=== PATIENT | female | born 1995 | race Caucasian/White ===

== ENCOUNTER 2023-11-03 00:03 | Inpatient (IN) ==
[2023-11-03 01:04] LABS: Basophils # (auto) 0.06 K/uL (0.00-0.20); Basophils % (auto) 0.5 %; Eosinophils # (auto) 0.04 K/uL (0.00-0.50); Eosinophils % (auto) 0.4 %; Hematocrit (blood only) 41.6 % (37.0-47.0); Hemoglobin 13.9 g/dl (12.0-16.0); Immature Granulocytes # (auto) 0.05 K/uL (0.01-0.20); Immature Granulocytes % (auto) 0.4 %; Lymphocytes # (auto) 3.99 K/uL (1.20-3.40); Lymphocytes % (auto) 35.4 %; Mean Corpuscular Hemoglobin 28.4 pg (25.0-34.0); Mean Corpuscular Hgb Conc 33.4 g/dL (32.0-36.0); Mean Corpuscular Volume 85.1 fL (80.0-100.0); Mean Platelet Volume 12.5 fL (9.4-12.4); Monocytes # (auto) 0.85 K/uL (0.11-0.59); Monocytes % (auto) 7.5 %; Neutrophils # (auto) 6.27 K/uL (1.40-6.50); Neutrophils % (auto) 55.8 %; Platelet Count 278 K/uL (130-400); RDW Coefficient of Variation 13.1 % (11.5-14.5); RDW Standard Deviation 39.8 fL (36.4-46.3); Red Blood Count 4.89 M/uL (4.20-5.40); White Blood Count 11.26 K/ul (4.8-10.8)
[2023-11-03 01:20] LABS: Albumin Globulin Ratio 1.7 (0.9-2); Albumin Level 4.9 gm/dl (3.4-5.0); BUN Creatinine Ratio 13.4 (10-20); Bilirubin,Total 0.9 mg/dl (0.2-1.0); Calcium 9.7 mg/dl (8.6-10.3); Creatinine Clr Calc Pharmacy 134.9 ml/min; Est GFR (African American) 140.6 ml/min; Est GFR (Non-African American) 121.3 ml/min; Globulin 2.9 gm/dl (2.5-4.0); Potassium 3.5 mmol/L (3.5-5.1); Total Protein 7.8 gm/dl (6.0-8.3)
[2023-11-03 01:31] LABS: Acetaminophen < 3 ug/ml (10-30); Salicylate < 3.0 mg/dl (3.0-30)
[2023-11-03 01:35] LABS: Thyroid Stimulating Hormone 2.872 uIu/ml (0.300-4.500)
[2023-11-03 03:01] LABS: Appearance Urine Clear (Clear); Bilirubin Urine Negative (Negative); Blood Urine Negative (Negative); Color Urine Yellow; Glucose Urine UA Negative (Negative); Ketones Urine 1+ (Negative); Leukocyte Esterase Urine Negative (Negative); Nitrite Urine Negative (Negative); Protein Urine Negative (Negative); Urobilinogen Urine Negative (Negative)
--- OUTSIDE RECORDS SUMMARY | 2023-11-03 03:08 | External Medical Summary | Continuity of Care Document ---
Author Name Unknown Organization [facility] [address] [id number] Address [address] [place] [address] [phone] Encounter [facility] [id number] Date(s): 06/25/23 - 06/25/23 [facility] [address] [facility] [address] [facility] [address] [place] [id number] Encounter Diagnosis Arthritis of first metatarsophalangeal (MTP) joint of right foot(Discharge Diagnosis) - 06/25/23 Sesamoiditis(Discharge Diagnosis) - 06/25/23 Right foot pain(Discharge Diagnosis) - 06/25/23 Discharge Disposition: Home or Self Care Attending Physician: ROSARIO Burns Christina L Allergies, Adverse Reactions, Alerts No Known Medication Allergies Assessment and Plan Extracted from: Title:Follow Up Visit Author:ROSARIO Burns, Gigi Zelaya Date:06/25/23 1.Arthritis of first metatarsophalangeal (MTP) joint of right foot Discussed with patient at this time that I am extremely pleased with her results I feel she should continue the padding as needed as well as the orthotics she may follow-up with me on an as-needed basis. 15-minute follow-up visit, 5-minute chart review, 10 minutes [id number] 2.Sesamoiditis 3.Right foot pain Medications No Known Medications Mental Status 06/25/23 Barriers to Learning one year None evide nt Mandatory Health Literacy Documentation Yes Health Literacy Communication Barriers N ever Primary Language French Problem List Condition Confirmation Course Effective Dates Status Health Status Informant Arthritis of first metatarsophalangeal (MTP) joint of right foot Confirmed Active Right foot pain Confirmed Active Stress reaction of foot Confirmed Active Sesamoiditis Confirmed Active Diagnosis Diagnosis Type Effective Dates Health Status Clinical Service Informant Arthritis of first metatarsophalangeal (MTP) joint of right foot Discharge Diagnosis 06/25/23 Right foot pain Discharge Diagnosis 06/25/23 Sesamoiditis Discharge Diagnosis 06/25/23 Procedures Procedure Date Related Diagnosis Body Site Status None Completed Social History Social History Type Response Smoking Status Never smoked cigaret tulio Sex Female Ortho Outpt Note * ROSARIO Burns Christina L: PERFORM Event Display: Ortho Outpt Note Authored Date: [id number] Chief Complaint follow-up right foot Subjective Patient is a very pleasant 28-year-old female presenting today for follow-up evaluation of right foot sesamoiditis last seen March 24, 2023. I felt that perhaps her inflammation to the sesamoid bones was secondary to her gaitI had recommended PToverall she states she was feeling better and nothaving a constant pain in the sesamoid areashe noted her pain had not completely resolved but wasbethany norwood had not yet found a pad that had workedbut was open to suggestions -Patient has had complete resolution of her pain or discomfort overall she is feeling well at today's visit she has returned to all of her activities of daily living without further tenderness or pain she feels that she has been able to walk all over campus without discomfort she is overall very pleased with her results. Review of Systems No pertinent positives. Objective Physical Exam Problem focused right foot: Dorsalis pedis and posterior tibial pulses fully palpable 2 out of 4capillary refill time less than 3 seconds skin turgor is good to all digitsof the right foot with pedal hair noted to be present. Neurovascular status is intact all digits of the right foot. Right foot without swelling tenderness or erythema I am not able to reproduce any pain to palpationpatient feels that the gel pads are suggested at previous visit were significantly improving her discomfort she was able to wear them with a lot more of her shoes including sandals in the summer shecontinues to wear her orthotics with her sneakers. Wearing custom orthotics with offloading and supportive shoe gear. X-ray dictation 3 views right foot:Taken at November 06, 2022 visit. Assessment/Plan 1.Arthritis of first metatarsophalangeal (MTP) joint of right foot Discussed with patient at this time that I am extremely pleased with her results I feel she should continue the padding as needed as well as the orthotics she may follow-up with me on an as-needed basis. 15-minute follow-up visit, 5-minute chart review, 10 minutes [id number] 2.Sesamoiditis 3.Right foot pain Electronic Signature on File Electronically Reviewed/Signed by: Reema Burns DPM Author Signature Dt/Tm:06/25/2023 03:17 PM Division of Sports Medicine CLR Patient Care team information Care Team Personnel Name: ROSARIO Burns, Reema Zelaya Position: Physician - Podiatry Member Role: Lifetime Relationship Address: Address: [address] [facility] [address] [place] [id number] [place]
[2023-11-03 03:30] LABS: Amphetamines+Metham, Urine Neg (Neg); Barbiturates, Urine Neg (Neg); Benzodiazepine, Urine Neg (Neg); Cocaine, Urine Neg (Neg); MDMA (Ecstacy), Urine Neg (Neg); Marijuana, Urine Pos (Neg); Methadone, Urine Neg (Neg); Opiate, Urine Neg (Neg); Phencyclidine, Urine Neg (Neg)
--- NOTE | 2023-11-03 04:35 | Emergency Department Note ---
Impression & Plan Psychosis Admit to 3 S. ED Provider Note NAME: CAITY CAICEDO AGE: 28 SEX: Female INFORMANT: Patient ED PROVIDER(S): Nia Greco DO CHIEF COMPLAINT: Hearing voices PLAN: Disposition: Admit to 3 S. 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 who presents to the emergency department with the [employer] [facility] [employer] after having episodes of hearing voices today and seeming acutely psychotic. The patient admits that she has had very little sleep over the past couple of days. The patient had laboratory studies performed which showed a mild leukocytosis at 11.2. She was not anemic. H&H were stable. Glucose was normal. Renal function was normal. Urine tox screen was positive for marijuana. Alcohol level was undetectable. Tylenol and aspirin levels were negative. Patient denies being homicidal or suicidal. Initially, the patient was unwilling to sign herself in voluntarily stating that she wanted to go home but then realizing she has not been eating or drinking like she should and admitted that she felt scared about the thoughts that she was having and was willing to admit herself voluntarily for inpatient psychiatric care. Care/management discussed with: ED psychiatric onsite case manager Triage Nursing notes: Reviewed and agree with them. Vital Signs: reviewed and unremarkable Differential Diagnosis: Psychosis, mood disorder, thought disorder, drug abuse HPI: 28 year old Female arrives for evaluation of hallucinations. The patient explains that this morning upon awakening, she was hearing her friend's voice tell her to do things that she would not normally do. She described telepathic communications believes that she was God. She "wrecked her apartment." She describes that she is normally neat and organized and she made things very disorganized in her apartment. She then continued to hear voices and went to her friend's office where she proceeded to take off all of her clothes and sit on her couch. This was very unusual behavior for her. This was not well- received by her friend. 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, history of marijuana use but has not used in the past 10 days HOME MEDICATIONS: None ALLERGIES: None VITALS: See Below PHYSICAL EXAMINATION: HEENT: Head - normocephalic and atraumatic Pupils are equal, round, and reactive to light. Extraocular eye muscles are intact, and sclera are anicteric. Nose - moist nasal mucosa without discharge. Mouth - moist buccal mucosa. Oropharynx is nonerythematous and there is no tonsillar exudate or edema noted. Neck: Supple; no JVD, nuchal rigidity, cervical lymphadenopathy, or auscultated bruits. Heart: Regular rate and rhythm. There is a normal S1 and S2 with no murmurs, clicks, or gallops appreciated. Lungs: Clear to auscultation bilaterally with no wheezes, rales, or rhonchi. Abdomen: Soft, completely nontender, nondistended, with good bowel sounds. There are no palpable pulsatile masses or hepatosplenomegaly. There is no guarding, rigidity, or rebound noted. Extremities: No evidence of cyanosis, clubbing, or edema. There are easily palpable peripheral pulses. Skin: warm and dry with good turgor and no rashes. Psych: Patient has a normal affect and answers all questions appropriately. She seems to have good insight but admits that she has been hearing voices which are not commanding her to do things she would not normally do. She describes very little sleep over the past 7 to 10 days. She describes eating very little food. She denies any drug use in the past 10 days. Emergency department course: The patient was evaluated in room A-7. A complete history and physical was performed. Laboratory studies were drawn as above. Patient was felt to be medically cleared. She was evaluated by the art manager. Initially, she did not want to be admitted to the hospital believing that she could handle her intrusive thoughts as an outpatient. She was scheduled to go to [facility] at 2 PM today. I went to reevaluate her prior to discharge and the patient became very tearful and told me that she was afraid. She was willing to sign herself in voluntarily for further inpatient care. She was evaluated by staff from 3 S. and they will admit her to their unit. Past Med/Surg History Medical History (Updated 11/03/23 @ 03:44 by Nia Greco DO) Food sensitivity with gastrointestinal symptoms No pertinent past medical history Surgical History No pertinent past surgical history Family History Other Diabetes Lung cancer Social History Smoking Status: Current some day smoker Tobacco Type: E-cigarettes / Vaping Hx Alcohol Use: Yes Alcohol Intake Frequency: 2-4 x/Month Hx Substance Use: No Preferred Language: East Timorese Feels Safe at Home: Yes Sunscreen Use: Yes Gender Identity: Female Allergies Allergies Allergy/AdvReac Type Severity Reaction Status Date / Time No Known Allergies Allergy Verified 09/22/22 09:33 Home Meds Home Medications Medication Instructions Recorded Confirmed bupropion HCl 300 mg 24 hr tablet, 300 mg PO QAM 05/16/23 05/16/23 extended release Results & Data (ED) Vital Signs Vital Signs - 24 hr 11/03/23 00:16 Temperature 36.7 C Temperature Source Oral Pulse Rate 80 Pulse Rhythm Regular Pulse Strength Normal Respiratory Rate 16 Respiratory Effort / Characteristics Non-Labored Spontaneous Respiratory Depth Normal Respiratory Pattern Regular Blood Pressure 137/73 Blood Pressure Mean 94 Blood Pressure Position Sitting Pulse Oximetry 97 Oxygen Delivery Method Room Air Sepsis Recent Fever Within 48 Hours No Sepsis New/Unexplained Change in Mental Status N/A Sepsis Action Taken by Nursing No Action Required Laboratory Data 11/03/23 00:15 11/03/23 00:15 Lab Results 11/03/23 11/03/23 11/03/23 Range/Units 00:15 02:28 02:30 WBC 11.26 H (4.8-10.8) K/ul RBC 4.89 (4.20-5.40) M/uL Hgb 13.9 (12.0-16.0) g/dl Hct 41.6 (37.0-47.0) % MCV 85.1 (80.0-100.0) fL MCH 28.4 (25.0-34.0) pg MCHC 33.4 (32.0-36.0) g/dL RDW Std Deviation 39.8 (36.4-46.3) fL RDW Coeff of Jacques 13.1 (11.5-14.5) % Plt Count 278 (130-400) K/uL MPV 12.5 H (9.4-12.4) fL Immature Gran % (Auto) 0.4 % Neut % (Auto) 55.8 % Lymph % (Auto) 35.4 % [place] % (Auto) 7.5 % Eos % (Auto) 0.4 % Baso % (Auto) 0.5 % Neut # (Auto) 6.27 (1.40-6.50) K/uL Lymph # (Auto) 3.99 H (1.20-3.40) K/uL [place] # (Auto) 0.85 H (0.11-0.59) K/uL Eos # (Auto) 0.04 (0.00-0.50) K/uL Baso # (Auto) 0.06 (0.00-0.20) K/uL Immature Gran # (Auto) 0.05 (0.01-0.20) K/uL Sodium 137 (136-145) mmol/L Potassium 3.5 (3.5-5.1) mmol/L Chloride 102 (98-107) mmol/L Carbon Dioxide 24 (21-32) mmol/L Anion Gap 11 (3-11) BUN 9 (6-23) mg/dl Creatinine 0.67 (0.6-1.2) mg/dl Est Cr Clr Drug Dosing 134.9 ml/min Est GFR ( Amer) 140.6 ml/min Est GFR (Non-Af Amer) 121.3 ml/min BUN/Creatinine Ratio 13.4 (10-20) Glucose 103 H (70-99(Fasting)) mg/dl Calcium 9.7 (8.6-10.3) mg/dl Total Bilirubin 0.9 (0.2-1.0) mg/dl AST 23 (13-39) U/L ALT 15 (7-52) U/L Alkaline Phosphatase 68 (34-104) U/L Total Protein 7.8 (6.0-8.3) gm/dl Albumin 4.9 (3.4-5.0) gm/dl Globulin 2.9 (2.5-4.0) gm/dl Albumin/Globulin Ratio 1.7 (0.9-2) TSH 2.872 (0.300-4.500) uIu/ml Urine Color Yellow Urine Appearance Clear (Clear) Urine pH 6.0 (4.5-7.5) Ur Specific [place] 1.010 (1.000-1.030) Urine Protein Negative (Negative) Urine Glucose (UA) Negative (Negative) Urine Ketones 1+ H (Negative) Urine Blood Negative (Negative) Urine Nitrite Negative (Negative) Urine Bilirubin Negative (Negative) Urine Urobilinogen Negative (Negative) Ur Leukocyte Esterase Negative (Negative) POC Ur Test NEG (NEG) Salicylates < 3.0 L (3.0-30) mg/dl Urine Opiates Screen Neg (Neg) Ur Methadone, Qual Neg (Neg) Acetaminophen < 3 L (10-30) ug/ml Urine Barbiturates Neg (Neg) Ur Phencyclidine (PCP) Neg (Neg) U Amphetamin/Meth Scrn Neg (Neg) MDMA (Ecstasy) Screen Neg (Neg) U Benzodiazepines Scrn Neg (Neg) Ur Cocaine Metabolite Neg (Neg) U Marijuana (THC) Screen Pos H (Neg) Ethyl Alcohol mg/dL < 10.0 (<10.0) mg/dl SARS-CoV-2, RNA, NAAT (NEGATIVE) 11/03/23 Range/Units 04:40 WBC (4.8-10.8) K/ul RBC (4.20-5.40) M/uL Hgb (12.0-16.0) g/dl Hct (37.0-47.0) % MCV (80.0-100.0) fL MCH (25.0-34.0) pg MCHC (32.0-36.0) g/dL RDW Std Deviation (36.4-46.3) fL RDW Coeff of Jacques (11.5-14.5) % Plt Count (130-400) K/uL MPV (9.4-12.4) fL Immature Gran % (Auto) % Neut % (Auto) % Lymph % (Auto) % [place] % (Auto) % Eos % (Auto) % Baso % (Auto) % Neut # (Auto) (1.40-6.50) K/uL Lymph # (Auto) (1.20-3.40) K/uL [place] # (Auto) (0.11-0.59) K/uL Eos # (Auto) (0.00-0.50) K/uL Baso # (Auto) (0.00-0.20) K/uL Immature Gran # (Auto) (0.01-0.20) K/uL Sodium (136-145) mmol/L Potassium (3.5-5.1) mmol/L Chloride (98-107) mmol/L Carbon Dioxide (21-32) mmol/L Anion Gap (3-11) BUN (6-23) mg/dl Creatinine (0.6-1.2) mg/dl Est Cr Clr Drug Dosing ml/min Est GFR ( Amer) ml/min Est GFR (Non-Af Amer) ml/min BUN/Creatinine Ratio (10-20) Glucose (70-99(Fasting)) mg/dl Calcium (8.6-10.3) mg/dl Total Bilirubin (0.2-1.0) mg/dl AST (13-39) U/L ALT (7-52) U/L Alkaline Phosphatase (34-104) U/L Total Protein (6.0-8.3) gm/dl Albumin (3.4-5.0) gm/dl Globulin (2.5-4.0) gm/dl Albumin/Globulin Ratio (0.9-2) TSH (0.300-4.500) uIu/ml Urine Color Urine Appearance (Clear) Urine pH (4.5-7.5) Ur Specific [place] (1.000-1.030) Urine Protein (Negative) Urine Glucose (UA) (Negative) Urine Ketones (Negative) Urine Blood (Negative) Urine Nitrite (Negative) Urine Bilirubin (Negative) Urine Urobilinogen (Negative) Ur Leukocyte Esterase (Negative) POC Ur Test (NEG) Salicylates (3.0-30) mg/dl Urine Opiates Screen (Neg) Ur Methadone, Qual (Neg) Acetaminophen (10-30) ug/ml Urine Barbiturates (Neg) Ur Phencyclidine (PCP) (Neg) U Amphetamin/Meth Scrn (Neg) MDMA (Ecstasy) Screen (Neg) U Benzodiazepines Scrn (Neg) Ur Cocaine Metabolite (Neg) U Marijuana (THC) Screen (Neg) Ethyl Alcohol mg/dL (<10.0) mg/dl SARS-CoV-2, RNA, NAAT NEGATIVE (NEGATIVE) Discharge Plan Visit Data Chief Complaint: Mental Health Evaluation Stated Complaint: 201 ED Provider: Nia Greco Discharge Problem: Psychosis Patient Disposition: Admitted As Inpatient Discharge Instructions Krames/Other Patient Handouts: ED Psychosis Activity Restrictions/Additional Instructions: Call [phone] if you have further hallucinations Return to the emergency department for help as needed Follow-up today at 2:00 with [facility] Interventions: ED Discharge Assessment Last Done: 11/03/23 06:32 Forms Stand Alone Forms: My [facility], Suicide Prevention Resources Prescriptions Prescriptions: No Action bupropion HCl 300 mg tablet extended release 24 hr 300 mg PO QAM Referrals [facility] [Primary [facility] - Discharge Problem: Psychosis Qualifiers: Psychosis type: unspecified psychosis type Qualified Code(s): F29 - Unspecified psychosis not due to a substance or known physiological condition
[2023-11-03] MEDS ORDERED: BISMUTH SUBSALICYLATE LIQD 236 ML PO PRN ×2 (06:48→07:53)
[2023-11-03] MEDS ORDERED: MAGNESIUM HYDROXIDE SUSP 30 ML UDC PO PRN ×2 (06:48→07:53)
[2023-11-03] MEDS ORDERED: hydrOXYzine HCl 25 MG TAB PO PRN ×3 (06:48→07:53)
[2023-11-03] MEDS ORDERED: ALUMINUM/MAGNESIUM SUSP 30 ML UDC PO PRN ×2 (06:48→07:53)
[2023-11-03] MEDS ORDERED: ACETAMINOPHEN 325 MG TAB PO PRN ×2 (06:48→07:53)
[2023-11-03] MEDS ORDERED: SODIUM CHLORIDE 0.65% NA SOLN 45 ML (OCEAN) PRN ×2 (06:48→07:53)
--- NOTE | 2023-11-03 11:31 | History & Physical ---
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 Pt attributes this to sleep deprivation and excessive use of cannabis. Based on her report of similar previous episodes that resolved with sleep and briefly abstaining from cannabis, this seems plausible. She has a history of adolescent admissions for "depression" and denies manic symptoms outside the context of heavy cannabis use. However, the presentation could also be consistent with bipolar I disorder manic with psychotic features. Risks and benefits of, and alternatives to, the use of quetiapine (Seroquel) for mood and psychosis were reviewed. This discussion included but was not limited to issues known potentially to be associated with use of such medication, especially at high doses or with longer use, including sedation, weight gain, problems with glucose metabolism including Type II diabetes, problems with lipid metabolism, cardiac conduction problems, or rarely involuntary movements, parkinsonian symptoms, or even acute dystonia or life- threatening Neuroleptic Malignant Syndrome. Discussed the need for periodic monitoring of fasting glucose or Hemoglobin A1c and fasting lipid panel, which were ordered for baseline monitoring. The patient agreed to start a trial of quetiapine. Overall I spent a total of 77 minutes on the floor for this admission including review of chart records, review of test results, direct evaluation of the patient [id number], counseling the patient, reconciling and ordering medication, medication education with the patient, risk assessment, discussion during interdisciplinary treatment rounds and with the psychiatric liaison nurse, and documentation in the electronic health record. (1) Cannabis-induced psychotic disorder: Plan The patient was admitted to the [facility] ([facility]) on q15 minute checks (behavioral with suicide precautions) for safety.The patient will participate in group, recreational, and milieu therapies and will be offered additional individual and family sessions as clinically appropriate. * start quetiapine 25 mg QAM (with first dose now) and 50 mg QHS * HgbA1c and fasting lipids * in addition to the screening labs ordered in the ED, will order vitamin B12 level, folic acid level, 25-OH vitamin D level, ESR to rule out conditions related to psychiatric symptoms. Inventory Assets Strengths: supportive relationships, voluntary, intelligent, employed, attending classes Needs: safety and stabilization, medication adjustment, additional coping skills, increased outpatient services Suicide Risk Level Suicide Risk Level: Low (q15 min observation checks) (denies suicidal thoughts) Risk Factors Assessment Male: No : Yes Do You Have Access To A Gun?: No Health Problems: No Mental Health Diagnoses: No Substance Use Disorders: Yes Previous Attempt: No Previous Psychiatric Hospitalization: Yes Hopelessness: No Protective Factors Assessment : No Responsible for Young Children: No Employed: Yes Supportive Family: Yes Good Rapport with Provider: Yes Psychiatric History Identifying Data CAITY CAICEDO is a 28-year-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 Chief Complaint "I think I've been enthralled to a vampire by hypnosis". History of Present Illness As part of a thorough review of the available medical records, I have read and incorporated into my assessment the following notes by the ED physician: "28 year old Female arrives for evaluation of hallucinations. The patient explains that this morning upon awakening, she was hearing her friend's voice tell her to do things that she would not normally do. She described telepathic communications believes that she was God. She "wrecked her ap artment." She describes that she is normally neat and organized and she made things very disorganized in her apartment. She then continued to hear voices and went to her friend's office where she proceeded to take off all of her clothes and sit on her couch. This was very unusual behavior for her. 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 The patient admits that she has had very little sleep over the past couple of days. The patient had laboratory studies performed which showed a mild leukocytosis at 11.2. She was not anemic. H&H were stable. Glucose was normal. Renal function was normal. Urine tox screen was positive for marijuana. Alcohol level was undetectable. Tylenol and aspirin levels were negative. Patient denies being homicidal or suicidal. Initially, the patient was unwilling to sign herself in voluntarily stating that she wanted to go home but then realizing she has not been eating or drinking like she should and admitted that she felt scared about the thoughts that she was having and was willing to admit herself voluntarily for inpatient psychiatric care." and the following notes by the ED psychiatric ed case manager: "Met with pt to complete MH and suicide risk assessments. Pt is unsure who called the police tonight. She reports that she was on the phone with her father when the officer knocked on her door. Pt denies SI/HI. She relates that today when she woke up she wrecked her apartment. When asked for more detail, pt states that she turned around her knickknacks and photos so that they werent facing her. She also reports that she feels she was communicating telepathically with a friend today who instructed her to take her clothes off in an office and open the door. Pt relates that these behaviors are well outside her norms. Pt also reports that sometimes she feels like God. Pt also states that she is having trouble remembering everything that happened today. Pt indicated that she felt like her internal dialogue was split in three. She is also reporting difficulty sleeping, stating I cant sleep. Its like there is a storm in my brain. Pt states that she does not believe that she is experiencing psychosis, but rather that the problem is the way the world is interacting with her. Pt does not currently have any outpatient providers and is not taking any medications. She states that she has been inpatient two times in the past, both in her mid-teens for depression and anxiety. 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 She states that today she was discussing the possibility of withdrawing from the program with her advisor at an 11:00 appointment. She reports asking her advisor something personal but has not indicated what that may be. Pt is adamantly denying the need for inpatient treatment" "While Dr. Greco met w/pt to discuss discharging her, she stated she would now like to sign herself in. CM met with pt at bedside who is reporting after speaking with her dad, she realizes she needs help and would like to sign in." Review of the medical record reveals an ED visit May 2023 with similar symptoms from which she was discharged to home. Review of pertinent labs reveals they are noncontributory except for mild leukocytosis. A urine toxicology screen was positive for metabolites of cannabis. BAL was <10 mg/dL. screen was negative. On exam pt is initially very guarded and wary, appearing anxious and restless. She is alert and fully-oriented. Eye contact is poor. Speech is of reduced latency, increased rate and duration, and normal volume. She appears to have racing thoughts. Pt dates onset of problems to over a year ago when problems arose in her 6-year relationship with a senior financial reporting accountant whom she'd met when they were both in college in [place]. She felt as if her girlfriend were inserting thoughts and feelings into her mind even though she was shipped out and that she was somehow rifling through items in pt's apartment and in her safe. She ended that relationship and has subsequently been on a quest to find someone honest with whom she can have good sex. For the past several weeks she says she's hardly slept at all. She feels as if she has been hypnotized by a vampire to whom she is now in [place] or that her actions and thoughts are being controlled from a distance by a woman. (I wasn't able to tell if this is the same as her former girlfriend, but my sense is that it's someone else). She has "been instructed" to leave her Ph.D. program "and do something else". She has sometimes felt as if she were God, but finds that thought unpleasant. She identifies a particular woman in her department as "acting as if she wants to control the whole department". At a recent meeting that included her "everyone else looked zoned out" and that woman (who was running the meeting) did not, so she assumes that some sort of mind control was being exerted. Pt voices that she knows this sounds crazy and sometimes refers to her "delusions" but is not fully in agreement that her odd experiences are psychotic. For example, when I told her that hearing a voice in her head telling her to take her clothes off sounds to me like a command auditory hallucination, pt says she knows it sounds like that but she disagrees. Says she's "been smoking a lot of pot lately" but isn't able to quantify her use. She thinks she's had previous episodes of psychosis related to heavy cannabis use and thinks she should stop but hasn't been able to. She was admitted twice in her adolescence for depression but has not been in treatment for a long time. Past Psychiatric History Current Psychiatric Diagnosis: MDD, JING Outpatient Services: none Previous Psych Admissions: 2 during adolescence for depression and anxiety Do You Have Access To A Gun?: No History of Previous Suicide Attempt: Yes (Age [age]) Allergies Allergy/AdvReac Type Severity Reaction Status Date / Time No Known Allergies Allergy Verified 09/22/22 09:33 Family History Family History of: Other-List under Comment Family Mental Health History Comment: unable to assess at this time Alcohol History Hx of Alcohol Use Over the Past 12 Months: No AUDIT Total Score: 1 Smoking Use Have You Smoked or Used Tobacco Products in the Last 30 Days: Yes tobacco type: cigarettes Smoking Status: Current some day smoker Smoking packs per day: 0.25 Substance History Hx of Prescription Med Misuse Over the Past 12 Months: No Hx of Over the Counter Med Misuse Over the Past 12 Months: No Hx of Inhalent Misuse Over the Past 12 Months: No Hx of Organic Substance Use Over the Past 12 Months: Yes (marijuana use) Hx of Illegal Substances/Street Drug Use Over Past 12 Months: No Problems as a Result of Past Substance Use: None Identified Personal History Living Arrangements: Apartment Highest Grade Completed: College Beliefs That Will Affect Care: None Patient History Medical History (Updated 11/03/23 @ 14:47 by Chalino Arroyo MD) Cannabis-induced psychotic disorder Food sensitivity with gastrointestinal symptoms No pertinent past medical history Surgical History No pertinent past surgical history Family History Other Diabetes Lung cancer Social History Smoking Status: Current some day smoker Tobacco Type: E-cigarettes / Vaping Hx Alcohol Use: Yes Alcohol Intake Frequency: 2-4 x/Month Hx Substance Use: No Preferred Language: Citizen Of [place] Communication Ability: Effective Interim Controller Required: No Beliefs That Will Affect Care: None Feels Safe at Home: Yes Sunscreen Use: Yes Gender Identity: Female Assistive Devices: None Review of Systems Psychiatric: + behavioral changes, + abnormal sleep p attern, + anxiety, + difficulty concentrating, + paranoia, + auditory hallucinations and + substance abuse Physical Exam Psychiatric: Orientation: alert, oriented to person, oriented to place, oriented to time and + guarded Apperance: appropriately dressed and appropriately groomed Eye Contact: + poor eye contact Motor Behavior: + psychomotor agitation (restless, fidgety) Speech: + pressured speech (reduced latency, rapid, prolonged, but normal volume); no loud speech Affect: + labile affect Mood: + anxious mood Thought Process: + flight of ideas and + looseness of associations Thought Content: + paranoid, + delusions, + ideas of reference, + thought insertion and + persecution Suicidal Thoughts: denies suicidal thoughts, denies suicidal plan and denies suicidal intent Homicidal Thoughts: denies homicidal thoughts Hallucinations: + auditory hallucinations; no visual hallucinations Cognition: recent memory grossly intact, remote memory grossly intact and language grossly intact; + attention no t intact Estimated Intelligence: consistent with education level Insight: + limited insight Judgment: + fair judgement Vital Signs (Past 24 Hours): Last Vital Signs Temp 36.7 C 11/03/23 08:04 Pulse 85 11/03/23 08:04 Resp 16 11/03/23 08:04 BP 113/73 11/03/23 08:04 Pulse Ox 98 11/03/23 08:04 O2 Del Method Room Air 11/03/23 08:04 Exam Statement: A physical exam was performed in the ED for the purposes of medical clearance. I accept that physical as correct and adequate for the purposes of the inpatient physical exam and have incorporated that information into my assessment. Results & Data ([facility]) Laboratory Results Laboratory Results - last 24 hr 11/03/23 11/03/23 11/03/23 00:15 02:28 02:30 WBC 11.26 H RBC 4.89 Hgb 13.9 Hct 41.6 MCV 85.1 MCH 28.4 MCHC 33.4 RDW Std Deviation 39.8 RDW Coeff of Jacques 13.1 Plt Count 278 MPV 12.5 H Immature Gran % (Auto) 0.4 Neut % (Auto) 55.8 Lymph % (Auto) 35.4 [place] % (Auto) 7.5 Eos % (Auto) 0.4 Baso % (Auto) 0.5 Neut # (Auto) 6.27 Lymph # (Auto) 3.99 H [place] # (Auto) 0.85 H Eos # (Auto) 0.04 Baso # (Auto) 0.06 Immature Gran # (Auto) 0.05 Sodium 137 Potassium 3.5 Chloride 102 Carbon Dioxide 24 Anion Gap 11 BUN 9 Creatinine 0.67 Est Cr Clr Drug Dosing 134.9 Est GFR ( Amer) 140.6 Est GFR (Non-Af Amer) 121.3 BUN/Creatinine Ratio 13.4 Glucose 103 H Calcium 9.7 Total Bilirubin 0.9 AST 23 ALT 15 Alkaline Phosphatase 68 Total Protein 7.8 Albumin 4.9 Globulin 2.9 Albumin/Globulin Ratio 1.7 TSH 2.872 Urine Color Yellow Urine Appearance Clear Urine pH 6.0 Ur Specific [place] 1.010 Urine Protein Negative Urine Glucose (UA) Negative Urine Ketones 1+ H Urine Blood Negative Urine Nitrite Negative Urine Bilirubin Negative Urine Urobilinogen Negative Ur Leukocyte Esterase Negative POC Ur Test NEG Salicylates < 3.0 L Urine Opiates Screen Neg Ur Methadone, Qual Neg Acetaminophen < 3 L Urine Barbiturates Neg Ur Phencyclidine (PCP) Neg U Amphetamin/Meth Scrn Neg MDMA (Ecstasy) Screen Neg U Benzodiazepines Scrn Neg Ur Cocaine Metabolite Neg U Marijuana (THC) Screen Pos H U Marijuana THC Carboxy Pending Drug Screen Comment Pending Ethyl Alcohol mg/dL < 10.0 SARS-CoV-2, RNA, NAAT 11/03/23 04:40 WBC RBC Hgb Hct MCV MCH MCHC RDW Std Deviation RDW Coeff of Jacques Plt Count MPV Immature Gran % (Auto) Neut % (Auto) Lymph % (Auto) [place] % (Auto) Eos % (Auto) Baso % (Auto) Neut # (Auto) Lymph # (Auto) [place] # (Auto) Eos # (Auto) Baso # (Auto) Immature Gran # (Auto) Sodium Potassium Chloride Carbon Dioxide Anion Gap BUN Creatinine Est Cr Clr Drug Dosing Est GFR ( Amer) Est GFR (Non-Af Amer) BUN/Creatinine Ratio Glucose Calcium Total Bilirubin AST ALT Alkaline Phosphatase Total Protein Albumin Globulin Albumin/Globulin Ratio TSH Urine Color Urine Appearance Urine pH Ur Specific [place] Urine Protein Urine Glucose (UA) Urine Ketones Urine Blood Urine Nitrite Urine Bilirubin Urine Urobilinogen Ur Leukocyte Esterase POC Ur Test Salicylates Urine Opiates Screen Ur Methadone, Qual Acetaminophen Urine Barbiturates Ur Phencyclidine (PCP) U Amphetamin/Meth Scrn MDMA (Ecstasy) Screen U Benzodiazepines Scrn Ur Cocaine Metabolite U Marijuana (THC) Screen U Marijuana THC Carboxy Drug Screen Comment Ethyl Alcohol mg/dL SARS-CoV-2, RNA, NAAT NEGATIVE Current Inpatient Medications Current Inpatient Medications: Current Inpatient Medications Acetaminophen (Acetaminophen 325 Mg Tab) 650 mg PO Q4H PRN PRN Reason: Headache or Minor Fever Stop: 12/03/23 07:52 Al Hydrox/Mg Hydrox/Simethicone (Aluminum/Magnesium Susp 30 Ml Udc) 30 ml PO Q4H PRN PRN Reason: GI Upset Stop: 12/03/23 07:52 Bismuth Subsalicylate (Bismuth Subsalicylate Liqd 236 Ml) 15 ml PO PRN PRN PRN Reason: Loose Stool Stop: 12/03/23 07:52 Hydroxyzine HCl (Hydroxyzine Hcl 25 Mg Tab) 50 mg PO HSZ PRN PRN Reason: Insomnia Stop: 12/03/23 07:52 Hydroxyzine HCl (Hydroxyzine Hcl 25 Mg Tab) 25 mg PO Q4H PRN PRN Reason: Anxiety Stop: 12/03/23 07:52 Magnesium Hydroxide (Magnesium Hydroxide Susp 30 Ml Udc) 30 ml PO DAILY PRN PRN Reason: Constipation Stop: 12/03/23 07:52 Quetiapine Fumarate (Quetiapine Fumarate 25 Mg Tablet) 25 mg PO DAILY CAROL Stop: 12/03/23 11:29 Sodium Chloride (Sodium Chloride 0.65% Na Soln 45 Ml ([place])) 1 - 2 sprays NA PRN PRN PRN Reason: Nasal Dryness/Congestion Stop: 12/03/23 07:52
[2023-11-03] MEDS: QUEtiapine FUMARATE 25 MG TABLET PO SCH ×2 (11:58→21:03)
--- NOTE | 2023-11-04 08:35 | Psychiatric Progress Note ---
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 Pt attributes this to sleep deprivation and excessive use of cannabis. Based on her report of similar previous episodes that resolved with sleep and briefly abstaining from cannabis, this seems plausible. She has a history of adolescent admissions for "depression" and denies manic symptoms outside the context of heavy cannabis use. However, the presentation could also be consistent with bipolar I disorder manic with psychotic features. 11/04/2023: Has been testing doors, both the unit exit door and various closet and even cabinet doors. Has announced that she's leaving right away. Was hovering in the area around the corner from the main entrance door when a staff member left the unit and she dashed towards the door. Fortunately the staff member managed to close the door behind him just in time. She demanded to be "taken to the [facility]" but declined a machine veneer repairer visit. She also phoned her dad and asked him to send a rideshare to pick her up. He reminded her that she'd signed a request for discharge within 72 hours that will on 10/06/2023 at 1030 and that he thought she should stay until then. She yelled at him to "fuck off" then hung up. He called us to say that pt's ex-girlfriend called him to say pt had called and told her the ex needed to . She phoned 911 to request rescue from the unit. She has been pacing increasingly rapidly over the course of the morning. Pt is not able to say where she plans to go or how she would get there other than to say she must "be in nature" and "do lots of walking and moving". She's unable to acknowledge that there are any reasons she might need treatment. She insists, very rapidly, that she does not have any pressured speech ("I always talk like this") or racing thoughts. On the basis of her demonstrably poor ability to recognize safety risks (such as attempting to leave the hospital with no particular destination in mind), command auditory hallucinations (including one that led her to remove her clothing in her advisor's office), delusions that her thoughts and actions are being controlled by "someone", and phoning her ex-girlfriend to threaten her, it is my opinion that she meets criteria for section 302 involuntary emergency psychiatric admission and have completed a warrant to that effect. When I discussed this with pt she says she's "felt crazy, just crazy, really crazy". She has accepted medications consistently and slept 1500 to 2100 yesterday and another 5 hours last night. 11/03/2023: Risks and benefits of, and alternatives to, the use of quetiapine (Seroquel) for mood and psychosis were reviewed. This discussion included but was not limited to issues known potentially to be associated with use of such medication, especially at high doses or with longer use, including sedation, weight gain, problems with glucose metabolism including Type II diabetes, problems with lipid metabolism, cardiac conduction problems, or rarely involuntary movements, parkinsonian symptoms, or even acute dystonia or life- threatening Neuroleptic Malignant Syndrome. Discussed the need for periodic monitoring of fasting glucose or Hemoglobin A1c and fasting lipid panel, which were ordered for baseline monitoring. The patient agreed to start a trial of quetiapine. (1) Cannabis-induced psychotic disorder: Plan 11/04/2023: * increase quetiapine to 50 mg QAM & 100 mg QHS * add quetiapine 25 mg Q6H PRN junito or psychosis * add lorazepam 1 mg PO Q6H PRN anxiety 11/03/2023: The patient was admitted to the [facility] ([facility] mental [facility] unit) on q15 minute checks (behavioral with suicide precautions) for safety.The patient will participate in group, recreational, and milieu therapies and will be offered additional individual and family sessions as clinically appropriate. * start quetiapine 25 mg QAM (with first dose now) and 50 mg QHS * HgbA1c and fasting lipids * in addition to the screening labs ordered in the ED, will order vitamin B12 level, folic acid level, 25-OH vitamin D level, ESR to rule out conditions related to psychiatric symptoms. Inventory Assets Strengths: supportive relationships, voluntary, intelligent, employed, attending classes Needs: safety and stabilization, medication adjustment, additional coping skills, increased outpatient services Suicide Risk Level Suicide Risk Level: Low (q15 min observation checks) (denies suicidal thoughts) Risk Factors Assessment Male: No : Yes Do You Have Access To A Gun?: No Health Problems: No Mental Health Diagnoses: No Substance Use Disorders: Yes Previous Attempt: No Previous Psychiatric Hospitalization: Yes Hopelessness: No Protective Factors Assessment : No Responsible for Young Children: No Employed: Yes Supportive Family: Yes Good Rapport with Provider: Yes Interval History Identifying Information * CAITY CAICEDO 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 Section 302 involuntary commitment forms were completed on 11/04/2023 at 1445. Chief Complaint "I need to leave immediately". Review of Systems Sleep Information Total Hours of Sleep: 13 Meal Information Percent Meal Consumed - Breakfast: 100 Percent Meal Consumed - Lunch: 50 Percent Meal Consumed - Dinner: 90 Subjective Subjective The patient was seen and assessed and interval progress reviewed in a multidisciplinary team meeting with the treatment team. For details, see the "Impression" section. I met with the patient 3 times over the course of the morning and early afternoon and overall spent a total of 66 minutes for this inpatient follow-up including review of chart records, direct evaluation of the patient [id number], counseling the patient, reconciling and ordering medication, medication education with the patient, risk assessment, discussion during interdisciplinary treatment rounds, completion of involuntary commitment forms and documentation in the electronic health record. Physical Exam Psychiatric Orientation: alert, oriented to person, oriented to place, oriented to time and + guarded Apperance: appropriately dressed and appropriately groomed Eye Contact: + poor eye contact Motor Behavior: + psychomotor agitation (restless, fidgety) Speech: + pressured speech (reduced latency, rapid, prolonged, but normal volume); no loud speech Affect: + labile affect Mood: + anxious mood Thought Process: + flight of ideas and + looseness of associations Thought Content: + paranoid, + delusions, + ideas of reference, + thought insertion and + persecution Suicidal Thoughts: denies suicidal thoughts, denies suicidal plan and denies suicidal intent Homicidal Thoughts: denies homicidal thoughts Hallucinations: + auditory hallucinations; no visual hallucinations Cognition: recent memory grossly intact, remote memory grossly intact and language grossly intact; + attention not intact Estimated Intelligence: consistent with education level Insight: + limited insight Judgment: + fair judgement Vital Signs (Past 24 Hours) Last Vital Signs Temp 37 C 11/04/23 06:36 Pulse 96 H 11/04/23 06:37 Resp 16 11/04/23 06:36 BP 131/81 11/04/23 06:37 Pulse Ox 98 11/03/23 08:04 O2 Del Method Room Air 11/03/23 08:04 Results & Data ([facility]) Current Inpatient Medications Current Inpatient Medications: Current Inpatient Medications Acetaminophen (Acetaminophen 325 Mg Tab) 650 mg PO Q4H PRN PRN Reason: Headache or Minor Fever Stop: 12/03/23 07:52 Al Hydrox/Mg Hydrox/Simethicone (Aluminum/Magnesium Susp 30 Ml Udc) 30 ml PO Q4H PRN PRN Reason: GI Upset Stop: 12/03/23 07:52 Bismuth Subsalicylate (Bismuth Subsalicylate Liqd 236 Ml) 15 ml PO PRN PRN PRN Reason: Loose Stool Stop: 12/03/23 07:52 Hydroxyzine HCl (Hydroxyzine Hcl 25 Mg Tab) 50 mg PO HSZ PRN PRN Reason: Insomnia Stop: 12/03/23 07:52 Hydroxyzine HCl (Hydroxyzine Hcl 25 Mg Tab) 25 mg PO Q4H PRN PRN Reason: Anxiety Stop: 12/03/23 07:52 Magnesium Hydroxide (Magnesium Hydroxide Susp 30 Ml Udc) 30 ml PO DAILY PRN PRN Reason: Constipation Stop: 12/03/23 07:52 Quetiapine Fumarate (Quetiapine Fumarate 25 Mg Tablet) 25 mg PO DAILY CAROL Stop: 12/03/23 11:29 Last Admin: 11/03/23 11:58 Dose: 25 mg Quetiapine Fumarate (Quetiapine Fumarate 25 Mg Tablet) 50 mg PO HS CAROL Stop: 12/03/23 21:59 Last Admin: 11/03/23 21:03 Dose: 50 mg Sodium Chloride (Sodium Chloride 0.65% Na Soln 45 Ml ([place])) 1 - 2 sprays NA PRN PRN PRN Reason: Nasal Dryness/Congestion Stop: 12/03/23 07:52 Mental Health & Subst Abuse Tx Psychiatrist Date Of Appointment With Psychiatric Provider: MARIA G Therapist Name of Therapist: NA Date of Therapist Appointment: NA Equities Trader Name of Equities Trader: NA Post Discharge Appointments Primary Care Physician Name Of Family Doctor/PCP: ELAINA
[2023-11-04] MEDS ORDERED: QUEtiapine FUMARATE 25 MG TABLET PO PRN (09:23)
[2023-11-04] MEDS: QUEtiapine FUMARATE 25 MG TABLET PO ONE (10:46)
[2023-11-04] MEDS ORDERED: LORazepam 1 MG TAB PO PRN (12:37)
[2023-11-04] MEDS: QUEtiapine FUMARATE 100 MG TABLET PO SCH (21:31)
[2023-11-04] MEDS: hydrOXYzine HCl 25 MG TAB PO PRN (21:33)
--- NOTE | 2023-11-05 09:21 | Psychiatric Progress Note ---
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 Pt attributes this to sleep deprivation and excessive use of cannabis. Based on her report of similar previous episodes that resolved with sleep and briefly abstaining from cannabis, this seems plausible. She has a history of adolescent admissions for "depression" and denies manic symptoms outside the context of heavy cannabis use. However, the presentation could also be consistent with bipolar I disorder manic with psychotic features. 11/06/2023: Yesterday afternoon pt's father passed on information from a call made to him by pt's ex. She told him that things seemed fine until last summer, when pt "stopped an antidepressant she'd been taking due to sexual side effects" (desvenlafaxine) and switched to "something else that really sped her up" (bupropion XL 300 mg). We discussed this. Pt says she'd stopped desvenlafaxine quite a while before the bupropion and had previously taken them together and disagrees that they really had any noticeable effect at all, detrimental or beneficial. Pt is somewhat guarded today but is at least superficially cooperative. She is clearly working to maintain an even demeanor and her speech today is measured. She does not voice any clear delusions. Has not received any PRN lorazepam or quetiapine. Pt hasn't yet agreed to venipuncture, so no lab results subsequent to admissions are available. She says she's willing to do this tomorrow. 11/04/2023: Has been testing doors, both the unit exit door and various closet and even cabinet doors. Has announced that she's leaving right away. Was hovering in the area around the corner from the main entrance door when a staff member left the unit and she dashed towards the door. Fortunately the staff member managed to close the door behind him just in time. [facility] but declined a web site admin visit. She also phoned her dad and asked him to send a rideshare to pick her up. He reminded her that she'd signed a request for discharge within 72 hours that will on 10/06/2023 at 1030 and that he thought she should stay until then. She yelled at him to "fuck off" then hung up. He called us to say that pt's ex-girlfriend called him to say pt had called and told her the ex needed to . She phoned 911 to request rescue from the unit. She has been pacing increasingly rapidly over the course of the morning. Pt is not able to say where she plans to go or how she would get there other than to say she must "be in nature" and "do lots of walking and moving". She's unable to acknowledge that there are any reasons she might need treatment. She insists, very rapidly, that she does not have any pressured speech ("I always talk like this") or racing thoughts. On the basis of her demonstrably poor ability to recognize safety risks (such as attempting to leave the hospital with no particular destination in mind), command auditory hallucinations (including one that led her to remove her clothing in her advisor's office), delusions that her thoughts and actions are being controlled by "someone", and phoning her ex-girlfriend to threaten her, it is my opinion that she meets criteria for section 302 involuntary emergency psychiatric admission and have completed a warrant to that effect. When I discussed this with pt she says she's "felt crazy, just crazy, really crazy". She has accepted medications consistently and slept 1500 to 2100 yesterday and another 5 hours last night. 11/03/2023: Risks and benefits of, and alternatives to, the use of quetiapine (Seroquel) for mood and psychosis were reviewed. This discussion included but was not limited to issues known potentially to be associated with use of such medication, especially at high doses or with longer use, including sedation, weight gain, problems with glucose metabolism including Type II diabetes, problems with lipid metabolism, cardiac conduction problems, or rarely involuntary movements, parkinsonian symptoms, or even acute dystonia or life- threatening Neuroleptic Malignant Syndrome. Discussed the need for periodic monitoring of fasting glucose or Hemoglobin A1c and fasting lipid panel, which were ordered for baseline monitoring. The patient agreed to start a trial of quetiapine. (1) Cannabis-induced psychotic disorder: Plan 11/06/2023: * continue quetiapine 50 mg QAM & 100 mg QHS * continue quetiapine 25 mg Q6H PRN junito or psychosis * continue lorazepam 1 mg PO Q6H PRN anxiety 11/04/2023: * increase quetiapine to 50 mg QAM & 100 mg QHS * add quetiapine 25 mg Q6H PRN junito or psychosis * add lorazepam 1 mg PO Q6H PRN anxiety 11/03/2023: The patient was admitted to the [facility] ([facility] unit) on q15 minute checks (behavioral with suicide precautions) for safety.The patient will participate in group, recreational, and milieu therapies and will be offered additional individual and family sessions as clinically appropriate. * start quetiapine 25 mg QAM (with first dose now) and 50 mg QHS * HgbA1c and fasting lipids * in addition to the screening labs ordered in the ED, will order vitamin B12 level, folic acid level, 25-OH vitamin D level, ESR to rule out conditions related to psychiatric symptoms. Inventory Assets Strengths: supportive relationships, voluntary, intelligent, employed, attending classes Needs: safety and stabilization, medication adjustment, additional coping skills, increased outpatient services Suicide Risk Level Suicide Risk Level: Low (q15 min observation checks) (denies suicidal thoughts) Risk Factors Assessment Male: No : Yes Do You Have Access To A Gun?: No Health Problems: No Mental Health Diagnoses: No Substance Use Disorders: Yes Previous Attempt: No Previous Psychiatric Hospitalization: Yes Hopelessness: No Protective Factors Assessment : No Responsible for Young Children: No Employed: Yes Supportive Family: Yes Good Rapport with Provider: Yes Interval History Identifying Information CAITY 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 Section 302 involuntary commitment forms were completed on 11/04/2023 at 1445. Chief Complaint "I'm pretty bored here". Review of Systems Sleep Information Total Hours of Sleep: 7.5 Meal Information Percent Meal Consumed - Breakfast: 75 Percent Meal Consumed - Lunch: 50 Percent Meal Consumed - Dinner: 75 Subjective Subjective The patient was seen and assessed and interval progress reviewed in a multidisciplinary team meeting with the treatment team. For details, see the "Impression" section. Overall I spent a total of 42 minutes for this inpatient follow-up including review of chart records, direct evaluation of the patient [id number], counseling the patient, medication education with the patient, risk assessment, discussion during interdisciplinary treatment rounds, and documentation in the electronic health record. Physical Exam Psychiatric Orientation: alert, oriented to person, oriented to place, oriented to time and cooperative (superficially) Apperance: appropriately dressed and appropriately groomed Eye Contact: + fair eye contact Motor Behavior: no abnormal motor movements Speech: normal rate/rhythm/volume of speech; no pressured speech Affect: + constricted affect Mood: + anxious mood Thought Process: + concrete thought process Thought Content: + paranoid, + delusions, + ideas of reference, + thought insertion and + persecution Suicidal Thoughts: denies suicidal thoughts, denies suicidal plan and denies suicidal intent Homicidal Thoughts: denies homicidal thoughts Hallucinations: no auditory hallucinations and no visual hallucinations Cognition: recent memory grossly intact, remote memory grossly intact, attention grossly intact and language grossly intact Estimated Intelligence: consistent with education level Insight: + limited insight Judgment: + fair judgement Vital Signs (Past 24 Hours) Last Vital Signs Temp 36.6 C 11/05/23 06:37 Pulse 81 11/05/23 06:37 Resp 16 11/05/23 06:37 BP 143/73 H 11/05/23 06:37 Pulse Ox 98 11/03/23 08:04 O2 Del Method Room Air 11/03/23 08:04 Results & Data ([facility]) Current Inpatient Medications Current Inpatient Medications: Current Inpatient Medications Acetaminophen (Acetaminophen 325 Mg Tab) 650 mg PO Q4H PRN PRN Reason: Headache or Minor Fever Stop: 12/03/23 07:52 Al Hydrox/Mg Hydrox/Simethicone (Aluminum/Magnesium Susp 30 Ml Udc) 30 ml PO Q4H PRN PRN Reason: GI Upset Stop: 12/03/23 07:52 Bismuth Subsalicylate (Bismuth Subsalicylate Liqd 236 Ml) 15 ml PO PRN PRN PRN Reason: Loose Stool Stop: 12/03/23 07:52 Hydroxyzine HCl (Hydroxyzine Hcl 25 Mg Tab) 50 mg PO HSZ PRN PRN Reason: Insomnia Stop: 12/03/23 07:52 Last Admin: 11/04/23 21:33 Dose: 50 mg Hydroxyzine HCl (Hydroxyzine Hcl 25 Mg Tab) 25 mg PO Q4H PRN PRN Reason: Anxiety Stop: 12/03/23 07:52 Lorazepam (Lorazepam 1 Mg Tab) 1 mg PO Q6H PRN PRN Reason: Anxiety Stop: 12/04/23 12:44 Magnesium Hydroxide (Magnesium Hydroxide Susp 30 Ml Udc) 30 ml PO DAILY PRN PRN Reason: Constipation Stop: 12/03/23 07:52 Quetiapine Fumarate (Quetiapine Fumarate 25 Mg Tablet) 25 mg PO Q6H PRN PRN Reason: psychosis or junito Stop: 12/04/23 09:29 Quetiapine Fumarate (Quetiapine Fumarate 100 Mg Tablet) 100 mg PO HS CAROL Stop: 12/04/23 21:59 Last Admin: 11/04/23 21:31 Dose: 100 mg Quetiapine Fumarate (Quetiapine Fumarate 25 Mg Tablet) 50 mg PO DAILY CAROL Stop: 12/05/23 08:59 Sodium Chloride (Sodium Chloride 0.65% Na Soln 45 Ml ([place])) 1 - 2 sprays NA PRN PRN PRN Reason: Nasal Dryness/Congestion Stop: 12/03/23 07:52 Mental Health & Subst Abuse Tx Psychiatrist Date Of Appointment With Psychiatric Provider: MARIA G Therapist Name of Therapist: MARIA G Date of Therapist Appointment: NA Real Time Operator Name of Real Time Operator: MARIA G Post Discharge Appointments Primary Care Physician Name Of Family Doctor/PCP: Hallie
[2023-11-05] MEDS: QUEtiapine FUMARATE 25 MG TABLET PO SCH (09:34)
[2023-11-05 14:08] LABS: Marijuana Quant, GCMS Urine 54 ng/mL (<5)
[2023-11-06 08:14] LABS: Chol HDL Ratio 2.2 (0-5)
[2023-11-06 08:39] LABS: Folate (Folic Acid),Ser orPlas 19.35 ng/ml (>5.38)
--- NOTE | 2023-11-06 14:20 | Psychiatric Progress Note ---
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 Pt attributes this to sleep deprivation and excessive use of cannabis. Based on her report of similar previous episodes that resolved with sleep and briefly abstaining from cannabis, this seems plausible. She has a history of adolescent admissions for "depression" and denies manic symptoms outside the context of heavy cannabis use. However, the presentation could also be consistent with bipolar I disorder manic with psychotic features. 11/06/2023: We were finally able to obtain fasting and additional screening labs this morning, all of which were normal except for 25-OH Vitamin D level of 18.7 ng/mL, which is in the deficient range. I reviewed the lab findings with pt. Pt slept fairly well last night. She's been up and participating a bit in the milieu but not participating much in groups. She has been maintaining an even affect. She's a little irritable, but proportionate to her feeling that she doesn't need to be here and feeling cooped up. She has not been pacing since the afternoon of 11/04/2023. Has voiced no recent delusions or hallucinations, but fairly clearly evidences a sense that she needs to limit revealing anything that "might sound crazy". Continues to accept quetiapine despite her uncertainty that she needs it and attributes no adverse effects to it. She has required no PRN medication. I suspect she may be appropriate for discharge fairly soon. Her [facility] er would like to participate in a family meeting prior to discharge. Pt tells me she does not want to have such a meeting. 11/05/2023: Yesterday afternoon pt's father passed on information from a call made to him by pt's ex. She told him that things seemed fine until last summer, when pt "stopped an antidepressant she'd been taking due to sexual side effects" (desvenlafaxine) and switched to "something else that really sped her up" (bupropion XL 300 mg). We discussed this. Pt says she'd stopped desvenlafaxine quite a while before the bupropion and had previously taken them together and disagrees that they really had any noticeable effect at all, detrimental or beneficial. Pt is somewhat guarded today but is at least superficially cooperative. She is clearly working to maintain an even demeanor and her speech today is measured. She does not voice any clear delusions. Has not received any PRN lorazepam or quetiapine. Pt hasn't yet agreed to venipuncture, so no lab results subsequent to admissions are available. She says she's willing to do this tomorrow. 11/04/2023: Has been testing doors, both the unit exit door and various closet and even cabinet doors. Has announced that she's leaving right away. Was hovering in the area around the corner from the main entrance door when a staff member left the unit and she dashed towards the door. Fortunately the staff member managed to close the door behind him just in time. She demanded to be "taken to the [facility]" but declined a market development trainer visit. She also phoned her dad and asked him to send a rideshare to pick her up. He reminded her that she'd signed a request for discharge within 72 hours that will on 10/06/2023 at 1030 and that he thought she should stay until then. She yelled at him to "fuck off" then hung up. He called us to say that pt's ex-girlfriend called him to say pt had called and told her the ex needed to . She phoned 911 to request rescue from the unit. She has been pacing increasingly rapidly over the course of the morning. Pt is not able to say where she plans to go or how she would get there other than to say she must "be in nature" and "do lots of walking and moving". She's unable to acknowledge that there are any reasons she might need treatment. She insists, very rapidly, that she does not have any pressured speech ("I always talk like this") or racing thoughts. On the basis of her demonstrably poor ability to recognize safety risks (such as attempting to leave the hospital with no particular destination in mind), command auditory hallucinations (including one that led her to remove her clothing in her advisor's office), delusions that her thoughts and actions are being controlled by "someone", and phoning her ex-girlfriend to threaten her, it is my opinion that she meets criteria for section 302 involuntary emergency psychiatric admission and have completed a warrant to that effect. When I discussed this with pt she says she's "felt crazy, just crazy, really crazy". She has accepted medications consistently and slept 1500 to 2100 yesterday and another 5 hours last night. 11/03/2023: Risks and benefits of, and alternatives to, the use of quetiapine (Seroquel) for mood and psychosis were reviewed. This discussion included but was not limited to issues known potentially to be associated with use of such medication, especially at high doses or with longer use, including sedation, weight gain, problems with glucose metabolism including Type II diabetes, problems with lipid metabolism, cardiac conduction problems, or rarely invo luntary movements, parkinsonian symptoms, or even acute dystonia or life- threatening Neuroleptic Malignant Syndrome. Discussed the need for periodic monitoring of fasting glucose or Hemoglobin A1c and fasting lipid panel, which were ordered for baseline monitoring. The patient agreed to start a trial of quetiapine. (1) Cannabis-induced psychotic disorder: Plan 11/06/2023: * continue quetiapine 50 mg QAM & 100 mg QHS * continue quetiapine 25 mg Q6H PRN junito or psychosis (none has been used) * continue lorazepam 1 mg PO Q6H PRN anxiety (none has been used) 11/05/2023: * continue quetiapine 50 mg QAM & 100 mg QHS * continue quetiapine 25 mg Q6H PRN junito or psychosis (none has been used) * continue lorazepam 1 mg PO Q6H PRN anxiety (none has been used) 11/04/2023: * increase quetiapine to 50 mg QAM & 100 mg QHS * add quetiapine 25 mg Q6H PRN junito or psychosis * add lorazepam 1 mg PO Q6H PRN anxiety 11/03/2023: The patient was admitted to the [facility] ([facility] mental health unit) on q15 minute checks (behavioral with suicide precautions) for safety.The patient will participate in group, recreational, and milieu therapies and will be offered additional individual and family sessions as clinically appropriate. * start quetiapine 25 mg QAM (with first dose now) and 50 mg QHS * HgbA1c and fasting lipids * in addition to the screening labs ordered in the ED, will order vitamin B12 level, folic acid level, 25-OH vitamin D level, ESR to rule out conditions related to psychiatric symptoms. Inventory Assets Strengths: supportive relationships, voluntary, intelligent, employed, attending classes Needs: safety and stabilization, medication adjustment, additional coping skills, increased outpatient services Suicide Risk Level Suicide Risk Level: Low (q15 min observation checks) (denies suicidal thoughts) Risk Factors Assessment Male: No : Yes Do You Have Access To A Gun?: No Health Problems: No Mental Health Diagnoses: No Substance Use Disorders: Yes Previous Attempt: No Previous Psychiatric Hospitalization: Yes Hopelessness: No Protective Factors Assessment : No Responsible for Young Children: No Employed: Yes Supportive Family: Yes Good Rapport with Provider: Yes Interval History Identifying Information CAITY CAICEDO is 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 Section 302 involuntary commitment forms were completed on 11/04/2023 at 1445. Chief Complaint "I'm really OK and I need to leave". Review of Systems Sleep Information Total Hours of Sleep: 7.5 Meal Information Percent Meal Consumed - Breakfast: 75 Percent Meal Consumed - Lunch: 100 Percent Meal Consumed - Dinner: 100 Subjective Subjective The patient was seen and assessed and interval progress reviewed in a multidisciplinary team meeting with the treatment team. For details, see the "Impression" section. Overall I spent a total of 32 minutes for this inpatient follow-up including review of chart records, review of test results, direct evaluation of the patient [id number], counseling the patient, [reconciling and ordering medica tion, ]medication education with the patient, risk assessment, discussion during interdisciplinary treatment rounds, and documentation in the electronic health record. Physical Exam Psychiatric Orientation: alert, oriented to person, oriented to place, oriented to time, cooperative (superficially) and + guarded Apperance: appropriately dressed and appropriately groomed Eye Contact: + fair eye contact and + poor eye contact Motor Behavior: no abnormal motor movements and + psychomotor agitation (restless, fidgety) Speech: normal rate/rhythm/volume of speech; no pressured speech and no loud speech Affect: + labile affect and + constricted affect Mood: + anxious mood Thought Process: + flight of ideas, + looseness of associations and + concrete thought process Thought Content: + paranoid, + delusions, + ideas of reference, + thought insertion and + persecution Suicidal Thoughts: denies suicidal thoughts, denies suicidal plan and denies suicidal intent Homicidal Thoughts: denies homicidal thoughts Hallucinations: no auditory hallucinations and no visual hallucinations Cognition: recent memory grossly intact, remote memory grossly intact, attention grossly intact and language grossly intact Estimated Intelligence: consistent with education level Insight: + limited insight Judgment: + fair judgement Vital Signs (Past 24 Hours) Last Vital Signs Temp 36.8 C 11/06/23 06:34 Pulse 72 11/06/23 06:35 Resp 16 11/06/23 06:34 BP 123/77 11/06/23 06:35 Pulse Ox 98 11/03/23 08:04 O2 Del Method Room Air 11/03/23 08:04 Results & Data ([facility]) Laboratory Results Laboratory Results - last 24 hr 11/06/23 07:39 Hgb 13.5 ESR 6 Triglycerides 63 Cholesterol 162 LDL Cholesterol, Calc 74 VLDL Cholesterol, Calc 13 HDL Cholesterol 75 Cholesterol/HDL Ratio 2.2 Vitamin B12 847 25-OH Vitamin D Total 18.7 L Folate 19.35 Current Inpatient Medications Current Inpatient Medications: Current Inpatient Medications Acetaminophen (Acetaminophen 325 Mg Tab) 650 mg PO Q4H PRN PRN Reason: Headache or Minor Fever Stop: 12/03/23 07:52 Al Hydrox/Mg Hydrox/Simethicone (Aluminum/Magnesium Susp 30 Ml Udc) 30 ml PO Q4H PRN PRN Reason: GI Upset Stop: 12/03/23 07:52 Bismuth Subsalicylate (Bismuth Subsalicylate Liqd 236 Ml) 15 ml PO PRN PRN PRN Reason: Loose Stool Stop: 12/03/23 07:52 Hydroxyzine HCl (Hydroxyzine Hcl 25 Mg Tab) 50 mg PO HSZ PRN PRN Reason: Insomnia Stop: 12/03/23 07:52 Last Admin: 11/04/23 21:33 Dose: 50 mg Hydroxyzine HCl (Hydroxyzine Hcl 25 Mg Tab) 25 mg PO Q4H PRN PRN Reason: Anxiety Stop: 12/03/23 07:52 Lorazepam (Lorazepam 1 Mg Tab) 1 mg PO Q6H PRN PRN Reason: Anxiety Stop: 12/04/23 12:44 Magnesium Hydroxide (Magnesium Hydroxide Susp 30 Ml Udc) 30 ml PO DAILY PRN PRN Reason: Constipation Stop: 12/03/23 07:52 Quetiapine Fumarate (Quetiapine Fumarate 25 Mg Tablet) 25 mg PO Q6H PRN PRN Reason: psychosis or junito Stop: 12/04/23 09:29 Quetiapine Fumarate (Quetiapine Fumarate 100 Mg Tablet) 100 mg PO HS CAROL Stop: 12/04/23 21:59 Last Admin: 11/05/23 20:46 Dose: 100 mg Quetiapine Fumarate (Quetiapine Fumarate 25 Mg Tablet) 50 mg PO DAILY CAROL Stop: 12/05/23 08:59 Last Admin: 11/06/23 08:45 Dose: 50 mg Sodium Chloride (Sodium Chloride 0.65% Na Soln 45 Ml ([place])) 1 - 2 sprays NA PRN PRN PRN Reason: Nasal Dryness/Congestion Stop: 12/03/23 07:52 Mental Health & Subst Abuse Tx Psychiatrist Date Of Appointment With Psychiatric Provider: MARIA G Therapist Name of Therapist: NA Date of Therapist Appointment: NA Gas Flow Regulator Name of Gas Flow Regulator: NA Post Discharge Appointments Primary Care Physician Name Of Family Doctor/PCP: ELAINA
--- NOTE | 2023-11-07 13:09 | Psychiatric Progress Note ---
Date of Service November 07, 2023 Impression / Recommendations Impression As per Dr. 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 Pt attributes this to sleep deprivation and excessive use of cannabis. Based on her report of similar previous episodes that resolved with sleep and briefly abstaining from cannabis, this seems plausible. She has a history of adolescent admissions for "depression" and denies manic symptoms outside the context of heavy cannabis use. However, the presentation could also be consistent with bipolar I disorder manic with psychotic features. Patient is now clearer and describes some complex trauma, previous episodes of depression as noted above. Initial presentation quite manic in appearance but complicated by unclear quantity of medical MJ. Her level was only 54. Her condition is likely mood driven psychosis rather than primary thought disorder, particularly as episodic and in my opinion is not solely cannabis induced. Remains on MNPR given initial presentation, elopement precautions. Overall, I spent a total of 54 minutes with this case, including review of chart, direct evaluation of the patient, counseling the patient, brief intervention around cannabis use, ordering medication, coordination with nursing, and documentation. (1) Psychosis: Plan 11/07/2023: will shift quetiapine to 150 mg hs dosing starting tomorrow to minimize daytime sedation and improve compliance. Patient will remain hospitalized on 302 involuntary commitment pending support meeting and aftercare. Given significant improvement in past 24 hrs do not plan to pursue 303 at this time. 11/06/2023: * continue quetiapine 50 mg QAM & 100 mg QHS * continue quetiapine 25 mg Q6H PRN junito or psychosis (none has been used) * continue lorazepam 1 mg PO Q6H PRN anxiety (none has been used) 11/05/2023: * continue quetiapine 50 mg QAM & 100 mg QHS * continue quetiapine 25 mg Q6H PRN junito or psychosis (none has been used) * continue lorazepam 1 mg PO Q6H PRN anxiety (none has been used) 11/04/2023: * increase quetiapine to 50 mg QAM & 100 mg QHS * add quetiapine 25 mg Q6H PRN junito or psychosis * add lorazepam 1 mg PO Q6H PRN anxiety 11/03/2023: The patient was admitted to the [facility] ([facility] unit) on q15 minute checks (behavioral with suicide precautions) for safety.The patient will participate in group, recreational, and milieu therapies and will be offered additional individual and family sessions as clinically appropriate. * start quetiapine 25 mg QAM (with first dose now) and 50 mg QHS * HgbA1c and fasting lipids * in addition to the screening labs ordered in the ED, will order vitamin B12 level, folic acid level, 25-OH vitamin D level, ESR to rule out conditions related to psychiatric symptoms. Inventory Assets Strengths: supportive relationships, voluntary, intelligent, employed, attending classes Needs: safety and stabilization, medication adjustment, additional coping skills, increased outpatient services Suicide Risk Level Suicide Risk Level: Low (q15 min observation checks) (denies suicidal thoughts) Risk Factors Assessment Male: No : Yes Do You Have Access To A Gun?: No Health Problems: No Mental Health Diagnoses: No Substance Use Disorders: Yes Previous Attempt: No Previous Psychiatric Hospitalization: Yes Hopelessness: No Protective Factors Assessment : No Responsible for Young Children: No Employed: Yes Supportive Family: Yes Good Rapport with Provider: Yes Interval History Identifying Information CAITY CAICEDO 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 Section 302 involuntary commitment forms were completed on 11/04/2023 at 1445. Chief Complaint "yeah, I've been stressed and not sleeping, things with my parents aren't good. I'm also done with marijuana." Review of Systems Sleep Information Total Hours of Sleep: 7.30 Meal Information Percent Meal Consumed - Breakfast: 100 Percent Meal Consumed - Lunch: 100 Percent Meal Consumed - Dinner: 90 Subjective Subjective Patient was seen & assessed and interval progress reviewed with nursing and social work. Patient has been taking Seroquel Bid as prescribed. Dose is lower i n am but she feels that is sedating and making it hard for her to focus on reading and completing written tasks in her workbook. She is concerned about this as wants to get back to her grad program. She doesn't plan to go home as "a stressful place" and described a history of her mother being dysregulated and threatening toward her father and him "just brushing it off." She explained that she rescinded her ABEL for father as form included both parents and she is trying to have better boundaries. Brief intervention was offered around her use of medical marijuana. She denies excessive use and feels that makes her feel "hyped" at bedtime and will abstain. Overall, intervention was greater than 5 min in length and included impact on mood and potential to interact with prescription medications. Discussed the need for longer term monitoring with Seroquel and should likely take for at least a year but would be at discretion of outpatient prescriber. She was agreeable to referral to [place]. Physical Exam Psychiatric Orientation: alert and cooperative Apperance: appropriately dressed and appropriately groomed Eye Contact: + fair eye contact Motor Behavior: no abnormal motor movements Speech: normal rate/rhythm/volume of speech; no pressured speech and no loud speech Affect: + depressed affect and + tearful affect Mood: + anxious mood Thought Process: goal directed thought process Thought Content: reality based without delusions Suicidal Thoughts: denies suicidal thoughts, denies suicidal plan and denies suicidal intent Homicidal Thoughts: denies homicidal thoughts Hallucinations: no auditory hallucinations and no visual hallucinations Cognition: attention grossly intact and language grossly intact Estimated Intelligence: consistent with education level Insight: + limited insight Vital Signs (Past 24 Hours) Last Vital Signs Temp 36.4 C 11/07/23 06:32 Pulse 78 11/07/23 06:32 Resp 16 11/07/23 06:32 BP 132/85 11/07/23 06:33 Pulse Ox 99 11/07/23 06:32 O2 Del Method Room Air 11/07/23 06:32 Results & Data ([facility]) Current Inpatient Medications Current Inpatient Medications: Current Inpatient Medications Acetaminophen (Acetaminophen 325 Mg Tab) 650 mg PO Q4H PRN PRN Reason: Headache or Minor Fever Stop: 12/03/23 07:52 Al Hydrox/Mg Hydrox/Simethicone (Aluminum/Magnesium Susp 30 Ml Udc) 30 ml PO Q4H PRN PRN Reason: GI Upset Stop: 12/03/23 07:52 Bismuth Subsalicylate (Bismuth Subsalicylate Liqd 236 Ml) 15 ml PO PRN PRN PRN Reason: Loose Stool Stop: 12/03/23 07:52 Hydroxyzine HCl (Hydroxyzine Hcl 25 Mg Tab) 50 mg PO HSZ PRN PRN Reason: Insomnia Stop: 12/03/23 07:52 Last Admin: 11/04/23 21:33 Dose: 50 mg Hydroxyzine HCl (Hydroxyzine Hcl 25 Mg Tab) 25 mg PO Q4H PRN PRN Reason: Anxiety Stop: 12/03/23 07:52 Lorazepam (Lorazepam 1 Mg Tab) 1 mg PO Q6H PRN PRN Reason: Anxiety Stop: 12/04/23 12:44 Magnesium Hydroxide (Magnesium Hydroxide Susp 30 Ml Udc) 30 ml PO DAILY PRN PRN Reason: Constipation Stop: 12/03/23 07:52 Quetiapine Fumarate (Quetiapine Fumarate 25 Mg Tablet) 25 mg PO Q6H PRN PRN Reason: psychosis or junito Stop: 12/04/23 09:29 Quetiapine Fumarate (Quetiapine Fumarate 100 Mg Tablet) 100 mg PO HS CAROL Stop: 11/08/23 08:00 Last Admin: 11/06/23 21:19 Dose: 100 mg Quetiapine Fumarate (Quetiapine Fumarate 25 Mg Tablet) 150 mg PO HS CAROL Stop: 12/08/23 21:59 Sodium Chloride (Sodium Chloride 0.65% Na Soln 45 Ml ([place])) 1 - 2 sprays NA PRN PRN PRN Reason: Nasal Dryness/Congestion Stop: 12/03/23 07:52 Mental Health & Subst Abuse Tx Psychiatrist Name of Psychiatrist: [facility] Psychiatrist's Date Of Appointment With Psychiatric Provider: NA Time of Appointment with Psychiatrist: [address] [place] [address] Psychiatric Appointment Comment: A referral has been faxed. Please call to schedule initial appointment. Therapist Name of Therapist: NA Date of Therapist Appointment: NA Industrial Spraypainter Name of Industrial Spraypainter: NA Post Discharge Appointments Primary Care Physician Name Of Family Doctor/PCP: [facility] Provider Appointment Comment: Please follow up as needed. Contact Information Discharge Discharge Address: [address] [address] (1) Psychosis Psychosis type: unspecified psychosis type Qualified Code(s): F29 - Unspecified psychosis not due to a substance or known physiological condition
--- NOTE | 2023-11-08 11:01 | Psychiatric Progress Note ---
Date of Service November 08, 2023 Impression / Recommendations Impression As per Dr. 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 Pt attributes this to sleep deprivation and excessive use of cannabis. Based on her report of similar previous episodes that resolved with sleep and briefly abstaining from cannabis, this seems plausible. She has a history of adolescent admissions for "depression" and denies manic symptoms outside the context of heavy cannabis use. However, the presentation could also be consistent with bipolar I disorder manic with psychotic features. Patient is now clearer and describes some complex trauma, previous episodes of depression as noted above. Initial presentation quite manic in appearance but complicated by unclear quantity of medical MJ. Her level was only 54. Her condition is likely mood driven psychosis rather than primary thought disorder, particularly as episodic and in my opinion is not solely cannabis induced. Remains on [facility] as hasn't been interacting with peers, will d/c elopement Overall, I spent a total of 35 minutes with this case, including review of chart, direct evaluation of the patient, counseling the patient, coordination with nursing, and documentation. (1) Psychosis: Plan 11/08/2023: continue current meds and tx plan. Remains hospitalized on 302 as need for aftercare and safety planning meeting. 11/07/2023: will shift quetiapine to 150 mg hs dosing starting tomorrow to minimize daytime sedation and improve compliance. Patient will remain hospitalized on 302 involuntary commitment pending support meeting and aftercare. Given significant improvement in past 24 hrs do not plan to pursue 303 at this time. 11/06/2023: * continue quetiapine 50 mg QAM & 100 mg QHS * continue quetiapine 25 mg Q6H PRN junito or psychosis (none has been used) * continue lorazepam 1 mg PO Q6H PRN anxiety (none has been used) 11/05/2023: * continue quetiapine 50 mg QAM & 100 mg QHS * continue quetiapine 25 mg Q6H PRN junito or psychosis (none has been used) * continue lorazepam 1 mg PO Q6H PRN anxiety (none has been used) 11/04/2023: * increase quetiapine to 50 mg QAM & 100 mg QHS * add quetiapine 25 mg Q6H PRN junito or psychosis * add lorazepam 1 mg PO Q6H PRN anxiety 11/03/2023: The patient was admitted to the [facility] ([facility] unit) on q15 minute checks (behavioral with suicide precautions) for safety.The patient will participate in group, recreational, and milieu therapies and will be offered additional individual and family sessions as clinically appropriate. * start quetiapine 25 mg QAM (with first dose now) and 50 mg QHS * HgbA1c and fasting lipids * in addition to the screening labs ordered in the ED, will order vitamin B12 level, folic acid level, 25-OH vitamin D level, ESR to rule out conditions related to psychiatric symptoms. Inventory Assets Strengths: supportive relationships, voluntary, intelligent, employed, attending classes Needs: safety and stabilization, medication adjustment, additional coping skills, increased outpatient services Suicide Risk Level Suicide Risk Level: Low (q15 min observation checks) (denies suicidal thoughts) Risk Factors Assessment Male: No : Yes Do You Have Access To A Gun?: No Health Problems: No Mental Health Diagnoses: No Substance Use Disorders: Yes Previous Attempt: No Previous Psychiatric Hospitalization: Yes Hopelessness: No Protective Factors Assessment : No Responsible for Young Children: No Employed: Yes Supportive Family: Yes Good Rapport with Provider: Yes Interval History Identifying Information CAITY CAICEDO is a 28-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 Section 302 involuntary commitment forms were completed on 11/04/2023 at 1445. Chief Complaint not attending programming Review of Systems Sleep Information Total Hours of Sleep: 8 Sleep Comments: HS Hien Meal Information Percent Meal Consumed - Breakfast: 100 Percent Meal Consumed - Lunch: 100 Percent Meal Consumed - Dinner: 100 Subjective Subjective Patient was seen & assessed and interval progress reviewed with nursing and social work. She remains focussed on discharge. She is clear she does not want therapy at discharge and reviewed the benefits, even given her training. She tolerated room shift and there have been no further evidence of elopement attempts or inappropriate use of the phone for several days. She did complete a safety plan. She notes less sedation this am. Physical Exam Psychiatric Orientation: alert and oriented x 3 Apperance: appropriately dressed and appropriately groomed Eye Contact: good eye contact Motor Behavior: no abnormal motor movements Speech: normal rate/rhythm/volume of speech Affect: + depressed affect Mood: + depressed mood Thought Process: goal directed thought process Thought Content: reality based without delusions Suicidal Thoughts: denies suicidal thoughts Homicidal Thoughts: denies homicidal thoughts Hallucinations: no auditory hallucinations and no visual hallucinations Cognition: attention grossly intact and language grossly intact Estimated Intelligence: consistent with education level Insight: + limited insight Judgment: + limited judgement Vital Signs (Past 24 Hours) Last Vital Signs Temp 36.5 C 11/08/23 06:21 Pulse 76 11/08/23 06:22 Resp 16 11/08/23 06:21 BP 122/77 11/08/23 06:22 Pulse Ox 98 11/08/23 06:21 O2 Del Method Room Air 11/08/23 06:21 Results & Data ([facility]) Current Inpatient Medications Current Inpatient Medications: Current Inpatient Medications Acetaminophen (Acetaminophen 325 Mg Tab) 650 mg PO Q4H PRN PRN Reason: Headache or Minor Fever Stop: 12/03/23 07:52 Al Hydrox/Mg Hydrox/Simethicone (Aluminum/Magnesium Susp 30 Ml Udc) 30 ml PO Q4H PRN PRN Reason: GI Upset Stop: 12/03/23 07:52 Bismuth Subsalicylate (Bismuth Subsalicylate Liqd 236 Ml) 15 ml PO PRN PRN PRN Reason: Loose Stool Stop: 12/03/23 07:52 Hydroxyzine HCl (Hydroxyzine Hcl 25 Mg Tab) 50 mg PO HSZ PRN PRN Reason: Insomnia Stop: 12/03/23 07:52 Last Admin: 11/04/23 21:33 Dose: 50 mg Hydroxyzine HCl (Hydroxyzine Hcl 25 Mg Tab) 25 mg PO Q4H PRN PRN Reason: Anxiety Stop: 12/03/23 07:52 Lorazepam (Lorazepam 1 Mg Tab) 1 mg PO Q6H PRN PRN Reason: Anxiety Stop: 12/04/23 12:44 Magnesium Hydroxide (Magnesium Hydroxide Susp 30 Ml Udc) 30 ml PO DAILY PRN PRN Reason: Constipation Stop: 12/03/23 07:52 Quetiapine Fumarate (Quetiapine Fumarate 25 Mg Tablet) 25 mg PO Q6H PRN PRN Reason: psychosis or junito Stop: 12/04/23 09:29 Quetiapine Fumarate (Quetiapine Fumarate 25 Mg Tablet) 150 mg PO HS CAROL Stop: 12/08/23 21:59 Sodium Chloride (Sodium Chloride 0.65% Na Soln 45 Ml ([place])) 1 - 2 sprays NA PRN PRN PRN Reason: Nasal Dryness/Congestion Stop: 12/03/23 07:52 Mental Health & Subst Abuse Tx Psychiatrist Name of Psychiatrist: Eitan Westfall Psychiatrist's Date Of Appointment With Psychiatric Provider: NA Time of Appointment with Psychiatrist: [address] [facility], [place] [address] Psychiatric Appointment Comment: A referral has been faxed. Please call to schedule initial appointment. Therapist Name of Therapist: NA Date of Therapist Appointment: NA Dough Molder Hand Name of Dough Molder Hand: NA Post Discharge Appointments Primary Care Physician Name Of Family Doctor/PCP: [facility] Provider Appointment Comment: Please follow up as needed. Contact Information Discharge Discharge Address: [address] [facility], [address] [address] (1) Psychosis Psychosis type: unspecified psychosis type Qualified Code(s): F29 - Unspecified psychosis not due to a substance or known physiological condition
[2023-11-08] MEDS: QUEtiapine FUMARATE 100 MG TABLET PO SCH (20:39)
[2023-11-08] MEDS ORDERED: QUEtiapine FUMARATE 25 MG TABLET PO SCH (22:00)
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
--- NOTE | 2023-11-11 05:19 | Coding Query ---
CODING QUERY To promote full compliance with coding requirements relating to patient care, provider participation is requested in all cases of inpatient coder uncertainty. Please assist us with the question(s) below: Coding Question(s): The H&P through the 11/06 Progress Notes document, " Cannabis-induced psychotic disorder", however, the Progress Notes starting 11/07 to the Discharge Summary document, "Psychosis", or "psychotic disorder". Please specify below, in your clinical opinion: ( X ) Psychosis/Psychotic Disorder ( ) Cannabis-induced psychotic disorder ( ) Other: Please Specify Physician's Response(s): the confirmatory test for cannabis came back very low so less likely cause of condition Thank you Cary Woodson Principal Diagnosis: "that condition established after study, to be chiefly responsible for occasioning the admission of the patient to the hospital for care." Co-Existing Principal Diagnosis: "when two or more diagnoses equally meet the criteria for principal diagnosis as determined by the circumstances of admission, diagnostic work up, and/or therapy provided, and the Alphabetic Index, Tabular List, or another coding guideline does not provide sequencing direction, any one of the diagnoses may be sequenced first." "When the physician has documented what appears to be a current diagnosis in the body of the record, but has not included the diagnosis in the final diagnostic statement, the physician should be asked whether the diagnosis should be added." (Source Coding Clinic 2 QTR90. p3-4) CORNELIUS
== END 2023-11-09 11:02 | disposition home or self-care (01) | DRG 885 ==
LOC: ED 00:03 → 3S 06:19 → SUATTDRO 06:19 → ED 06:32 → 3S 11-05 17:33